=== PATIENT | female | born 1960 | race Caucasian/White ===

== ENCOUNTER → 2022-02-26 | Day surgery (SDC) | payer MEDICARE ==
[~2022-02-26] VITALS: Ht 158 cm; Wt 101.8 kg
[~2022-02-26] MED LIST: ASCORBIC ACID500 MG PO; ASPIRIN325 MG PO; BENTYL10 MG PO; CERTAGEN1 EACH PO; CLARITIN-D 121 EACH PO; COLACE100 MG PO; COZAAR50 MG PO; CRANBERRY250 MG PO; DICLOFENAC SODI75 MG PO; DITROPAN5 MG PO; HCTZ25 MG PO; IRON325 M1 PO; LIPITOR 10MG TA10 MG PO; MIRALAX17 G1 PO; MOBIC7.5 MG PO; NORVASC5 MG PO; PERCOCET 5-3251 EACH PO; PROTONIX 40MG T40 MG PO; ULTRAM50 MG PO; VITAMIN B-121000 MC1 PO; VITAMIN D350 MC3 PO; XARELTO10 MG PO; ZOFRAN ODT4 MG PO; ZYRTEC10 M3 PO
[2022-02-26 07:21] LABS: ALBUMIN 3.9 g/dL (3.4-5.0); BILIRUBIN - TOTAL 1.2 mg/dL (0.2-1.0); BUN/CREAT RATIO (CALC) 27.3 RATIO; CREATININE 0.66 mg/dL (0.51-0.95); GLOBULIN (CALCULATION) 3.5 g/dL; TOTAL PROTEIN 7.4 g/dL (6.4-8.2)
[2022-02-26 07:33] LABS: HCT 43.9 % (37.0-47.0); HGB 15.1 g/dl (12.5-16.0); MCH 32.9 pg (25.0-31.0); MCHC 34.4 g/dL (32.0-36.0); MCV 95.6 fL (78.0-100.0); MPV 9.6 fL (6.0-9.5); RBC 4.59 M/uL (4.20-5.40); RDW 12.5 % (11.5-14.0); WBC 5.6 K/uL (4.0-10.5)
== END | disposition home or self-care (01) ==
LOC: FAS 01-29 10:30
PROVIDERS: Orthopaedic Surgery
DX: M75.101 Unspecified rotator cuff tear or rupture of right shoulder, not specified as traumatic (principal); M19.011 Primary osteoarthritis, right shoulder; M75.91 Shoulder lesion, unspecified, right shoulder; M75.41 Impingement syndrome of right shoulder; Z96.641 Presence of right artificial hip joint; Z79.01 Long term (current) use of anticoagulants; Z88.6 Allergy status to analgesic agent
CPT/HCPCS: 36415; 71045; 80053; 93005; J0171; J0690; J1100; J2250; J2405; J2704; J2710; J2795; J3010; J7120